=== PATIENT | male | born 1950 | race Caucasian/White ===

== ENCOUNTER 2016-10-02 10:50 | Observation (INO) | payer MEDICARE ==
[2016-10-02] VITALS (14 sets, daily range): BP systolic 124–192; BP diastolic 56–101; PULSE 62–107; TEMP 97.4–98.5
[~2016-10-02] VITALS: Ht 167.6 cm; Wt 56.8 kg
[2016-10-02 11:36] LABS: CALCIUM 10.4 mg/dL (8.4-10.2); CREATININE, serum 0.86 mg/dL (0.66-1.25); HEMATOCRIT 42.7 % (42.0-52.0); HEMOGLOBIN 14.4 g/dl (13.5-18.0); MEAN CELL VOLUME 94 fl (80.0-100.0); MEAN CORPUSCULAR HEMOGLOBIN 32 pg (27.0-31.0); MEAN CORPUSCULAR HGB CONC 34 g/dl (33.0-37.0); MEAN PLATELET VOLUME 10.2 fl (7.4-10.4); PLATELET COUNT 230 K/mm3 (130-400); RED BLOOD COUNT 4.55 M/mm3 (4.20-5.60); REDCELL DISTRIBUTION WIDTH-CV 13.4 % (11.5-14.5); WHITE BLOOD COUNT 6.6 K/mm3 (4.8-10.8)
[2016-10-02 11:40] LABS: PROTHROMBIN TIME 10.5 SECONDS (9.7-12.8)
[2016-10-02] MEDS ORDERED: COREG 6.256.25 MG/TA PO (12:13)
[2016-10-02] MEDS ORDERED: PRINZIDE 12.5 M1 TA1 PO (12:13)
[2016-10-02] MEDS ORDERED: OMEGA-3 1000 MG1 CAP PO (12:14)
[2016-10-02] MEDS ORDERED: ASPI325T6 PO (12:14)
[2016-10-02] MEDS ORDERED: MULTI VITAMINS1 TAB PO (12:15)
[2016-10-03] VITALS (14 sets, daily range): BP systolic 97–157; BP diastolic 62–95; PULSE 60–77; TEMP 97.2–98.7
[2016-10-04 03:26] VITALS: BP 158/73; PULSE 76; TEMP 98
[2016-10-04 08:17] VITALS: BP 158/83; PULSE 78; TEMP 97.7
[2016-10-04] MEDS ORDERED: PRINIVIL10 MG PO (11:45)
[2016-10-04] MEDS ORDERED: COREG12.5 MG (11:46)
[2016-10-04] MEDS ORDERED: CEPHALEXIN500 M1 PO (11:46)
[2016-10-04] MEDS ORDERED: TYLENOL 325MG325 MG PO (11:52)
== END 2016-10-04 12:32 | disposition home or self-care (01) ==
LOC: EUO 10:50 → COL.RAD 11:00 → EUO 11:00 → MEDICAL 15:30 → EUO 16:20 → MEDICAL 10-03 09:59 → EUO 10-03 09:59 → MEDICAL 10-03 10:00
PROVIDERS: Internal Medicine Cardiovascular Disease
DX: I25.10 Atherosclerotic heart disease of native coronary artery without angina pectoris (principal); I50.22 Chronic systolic (congestive) heart failure; I25.5 Ischemic cardiomyopathy; R06.02 Shortness of breath; I10 Essential (primary) hypertension; F17.210 Nicotine dependence, cigarettes, uncomplicated
CPT/HCPCS: OP; C1721; C1769; C1887; C1894; C1895; C1898; G0378; J0690; J1644; J2250; J3010; J7030; Q9967

== ENCOUNTER → 2020-03-26 | Outpatient (CLI) | payer MEDICARE ==
[~2020-03-26] MED LIST: ASPI325T6 PO; CEPHALEXIN500 M1 PO; COREG 6.256.25 MG/TA PO; COREG12.5 MG; MULTI VITAMINS1 TAB PO; OMEGA-3 1000 MG1 CAP PO; PRINIVIL10 MG PO; PRINZIDE 12.5 M1 TA1 PO; TYLENOL 325MG325 MG PO
== END ==
LOC: COL.RAD 10:55
DX: I73.9 Peripheral vascular disease, unspecified (principal)
CPT/HCPCS: Q9967